=== PATIENT | female | born 1950 | race Caucasian/White ===

== ENCOUNTER 2022-01-15 12:09 | Emergency (ER) | payer MEDICARE, OTHER, SELFPAY ==
--- NOTE | 2022-01-15 12:13 | XR_ITS ---
WS: [id number] XR chest 1V portable [id number] REASON FOR EXAM: cp FINDINGS: Mild tortuosity and ectasia of the thoracic aorta and normal heart size. Calcified granulomatous disease bilaterally. No acute pulmonary parenchymal or pleural abnormality. Moderate degenerative spondylosis in the mid and lower thoracic spine. 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 XR/XR chest 1V portable [id number] IMPRESSION: No acute chest abnormality.
[2022-01-15 12:22] VITALS: BP 185/107; PULSE 80; RESP 16; TEMP 37.2; O2SAT 94
--- NOTE | 2022-01-15 12:25 | ECG_ITS ---
[facility] Test Date: 2022-01-15 Pat Name: Yesenia Arias Department: Room: Gender: Female Manager Medical: : 1950 Requested By: Sebastien Baca Order Number: [id number] Wilda MD: Aurelia Sheets M.D. Measurements Intervals [place] Rate: 72 P: 57 UT: 198 QRS: 81 QRSD: 98 T: 40 QT: 359 QTc: 394 Interpretive Statements SINUS RHYTHM POSSIBLE LEFT ATRIAL ENLARGEMENT [-0.1mV P-WAVE IN V1/V2] No previous ECG available for comparison Electronically Signed On 01-15-2022 14:51:44 DEHYDRATION UNIT OPERATOR by Aurelia Sheets M.D. [email or web address] CorporationVirgin Mobile Latin Americauniversity hospitals portage medical centerVariation [email or web address]/store/OM/[id number]
[2022-01-15 12:28] VITALS: PULSE 65; O2SAT 98
[2022-01-15 13:06] LABS: Basophils % 0.5 %; Eosinophils # 0.1 10^3/uL (0.0-0.8); Eosinophils % 2.5 %; Hematocrit 42.8 % (37.0-47.0); Hemoglobin 14.2 g/dL (11.5-15.3); Lymphocytes # 1.7 10^3/uL (0.8-4.8); Lymphocytes % 30.4 %; Mean Corpuscular HGB Conc 33.2 g/dL (30.0-36.0); Mean Corpuscular Hemoglobin 28.5 pg (28.0-34.0); Mean Corpuscular Volume 85.8 fl (81-99); Mean Platelet Volume 10.2 fL (7.4-10.4); Monocytes # 0.3 10^3/uL (0.2-0.9); Monocytes % 5.6 %; Neutrophils # 3.46 10^3/uL (1.8-7.7); Neutrophils % 60.6 %; Nucleated Red Blood Cells % 0 %; Platelet Count 186 10^3/cmm (130-400); Red Blood Count 4.99 10^6/uL (4.1-5.3); Red Cell Distribution Width 12.5 % (12.1-15.1); White Blood Count 5.7 10^3/uL (4.0-10.0)
[2022-01-15 13:19] LABS: Troponin(5th) Baseline 23 ng/L (0-10)
[2022-01-15 13:28] LABS: Alanine Aminotransferase 16 U/L (0-33); Albumin Level 4.5 g/dL (3.5-5.2); Alkaline Phosphatase 87 U/L (35-105); Anion Gap 13.2 (5-19); Aspartate Amino Transferase 18 U/L (0-32); Blood Urea Nitrogen 14 mg/dL (8-23); Calcium 10.3 mg/dL (8.5-10.5); Carbon Dioxide 29 mmol/L (22-29); Chloride 102 mmol/L (98-107); Globulin 3.5 g/dL (1.3-4.6); Glomerular Filtration Rate 98.8 mL/min (90-130); Glucose 77 mg/dL (65-115); Lipase 66 U/L (13-60); NT Pro B Type Natriuretic Pept 44 pg/mL (0-125); Osmolality Calculated 289 mOsm/kg (285-295); Potassium 4.2 mmol/L (3.5-5.1); Sodium 140 mmol/L (136-145); Total Bilirubin 0.3 mg/dL (0.15-1.2)
--- NOTE | 2022-01-15 14:13 | ECG_ITS ---
[facility] Test Date: 2022-01-15 Pat Name: Yesenia Arias Department: Room: Gender: Female Yam Curer: : 1950 Requested By: Sebastien Baca Order Number: [id number] Wilda MD: Aurelia Sheets M.D. Measurements Intervals [place] Rate: 72 P: 54 NM: 199 QRS: 71 QRSD: 90 T: 44 QT: 366 QTc: 403 Interpretive Statements SINUS RHYTHM WITH SINUS ARRHYTHMIA Compared to ECG 01/15/2022 12:25:16 No significant changes Electronically Signed On 01-16-2022 0:14:03 SUPERVISOR HYDROCHLORIC AREA by Aurelia Sheets M.D. [email or web address] state [email or web address] memorial [email or web address]/store/[id number]
--- NOTE | 2022-01-15 15:29 | W.ED.CHESTPA ---
HPI - Chest Pain General: Chief Complaint: Chest Pain Stated Complaint: chest pain Time Seen by Provider: 01/15/22 15:29 History of Present Illness: Ms. Arias is a 72-year-old lady without significant past medical history presenting to the emergency department due to palpitations and chest discomfort. She reports noticing symptoms started at rest approximately 1 week ago without known specific provoking event. Since that time she does admit intermittent episodes that do not correlate with exertion or other typical cardiac features. He does become less of a pinching sensation and more of a pressure. Not currently having symptoms. When present intensity is moderate. Course has mildly worsened. No other specific changes in health, exacerbating, or alleviating factors identified. Onset (ago): day(s) Timing of current episode: episodic Prior episodes: No Onset: during rest Pain location: left chest Severity: moderate Quality: sharp Relieving factors: nothing Exacerbating factors: nothing Associated symptoms: Reports palpitations Review of Systems General: Reports: 10 or more systems reviewed and unremarkable except in HPI and below Card: Reports: palpitations PFSH ED PFSH: Medical History (Updated 01/23/22 @ 00:01 by ) No significant past medical history Surgical History (Updated 01/15/22 @ 15:57 by Sebastien Baca MD) History of hysterectomy Physical Exam Const: COMMON NORMALS: alert GENERAL APPEARANCE: cooperative and well developed HENMT: COMMON NORMALS: normocephalic and atraumatic HEAD & SCALP: normocephalic and atraumatic THROAT: posterior oropharynx normal Eye: COMMON NORMALS: conjunctivae normal CONJUNCTIVA: Yes conjunctivae normal SCLERA: sclerae normal Neck/C-Spine: COMMON NORMALS: supple GENERAL: Yes trachea midline Resp: COMMON NORMALS: normal respiratory effort and clear to auscultation bilaterally EFFORT & INSPECTION: Yes able to speak in complete sentences AUSCULTATION: clear to auscultation bilaterally Cardio: COMMON NORMALS: regular rate and regular rhythm RATE: regular rate RHYTHM: regular rhythm GI: COMMON NORMALS: Soft to palpation PALPATION: Yes Soft to palpation and No Tenderness to palpation present (GI) Extremity: GENERAL: Yes normal exam except as noted and No edema Neuro: COMMON NORMALS: moves all extremities SENSORIUM/ORIENTATION: Yes alert and No Orientation impaired Psych: COMMON NORMALS: mental status grossly normal and Normal thought process present THOUGHT PROCESS: Normal thought process present Course Vital Signs: Vital signs: Vital Signs Temperature 98.9 F 01/15/22 12:22 Pulse Rate 61 01/15/22 16:25 Respiratory Rate 16 01/15/22 16:25 Blood Pressure 191/82 01/15/22 16:25 Pulse Oximetry 96 01/15/22 16:25 Oxygen Delivery Me thod 01/15/22 12:22 MDM - Chest Pain Medical Decision Making 72-year-old lady presenting with chest discomfort. Exam as above. EKG shows sinus rhythm with nonspecific ST segment abnormalities, no STEMI No significant hematologic or metabolic abnormalities to explain symptoms. The patient's 2-hour delta troponin is negative. Minimally elevated lipase though clinical symptoms are not consistent with pancreatitis. Chest x-ray with no lobar consolidation or pneumothorax. The most likely cause of patient's symptoms is unclear though she is not low risk by heart score. The results of ED evaluation were discussed with the patient including possible disposition options. I discussed risk stratification by heart score and estimated risk of major adverse cardiac events. The patient does not wish to undergo nuclear medicine cardiac stress testing due to prior experience with this. The patient wishes to proceed with outpatient management. I discussed prescriptions and/or symptomatic cares (if applicable) including appropriate and responsible use, followup plan, and return precautions. The patient verbalized understanding and felt safe for discharge. Medical Records I reviewed the patient's medical records. Lab Data I reviewed the patient's lab results. 01/15/22 12:50 01/15/22 12:50 Radiology Impressions Chest X-Ray 01/15/22 12:13 IMPRESSION: No acute chest abnormality. Laboratory Results WBC 5.7 10^3/uL (4.0-10.0) 01/15/22 12:50 RBC 4.99 10^6/uL (4.1-5.3) 01/15/22 12:50 Hgb 14.2 g/dL (11.5-15.3) 01/15/22 12:50 Hct 42.8 % (37.0-47.0) 01/15/22 12:50 MCV 85.8 fl (81-99) 01/15/22 12:50 MCH 28.5 pg (28.0-34.0) 01/15/22 12:50 MCHC 33.2 g/dL (30.0-36.0) 01/15/22 12:50 RDW 12.5 % (12.1-15.1) 01/15/22 12:50 Plt Count 186 10^3/cmm (130-400) 01/15/22 12:50 MPV 10.2 fL (7.4-10.4) 01/15/22 12:50 Neut % (Auto) 60.6 % 01/15/22 12:50 Lymph % (Auto) 30.4 % 01/15/22 12:50 [place] % (Auto) 5.6 % 01/15/22 12:50 Eos % (Auto) 2.5 % 01/15/22 12:50 Baso % (Auto) 0.5 % 01/15/22 12:50 Neut # (Auto) 3.46 10^3/uL (1.8-7.7) 01/15/22 12:50 Lymph # (Auto) 1.7 10^3/uL (0.8-4.8) 01/15/22 12:50 [place] # (Auto) 0.3 10^3/uL (0.2-0.9) 01/15/22 12:50 Eos # (Auto) 0.1 10^3/uL (0.0-0.8) 01/15/22 12:50 Baso # (Auto) 0.0 10^3/uL (0.0-0.1) 01/15/22 12:50 Nucleated RBC % (auto) 0 % 01/15/22 12:50 Nucleated RBCs # 0.0 /100WBC 01/15/22 12:50 Sodium 140 mmol/L (136-145) 01/15/22 12:50 Potassium 4.2 mmol/L (3.5-5.1) 01/15/22 12:50 Chloride 102 mmol/L (98-107) 01/15/22 12:50 Carbon Dioxide 29 mmol/L (22-29) 01/15/22 12:50 Anion Gap 13.2 (5-19) 01/15/22 12:50 BUN 14 mg/dL (8-23) 01/15/22 12:50 Creatinine 0.6 mg/dL (0.5-0.9) 01/15/22 12:50 GFR Calculation 98.8 mL/min (90-130) 01/15/22 12:50 Glucose 77 mg/dL (65-115) 01/15/22 12:50 Calculated Osmolality 289 mOsm/kg (285-295) 01/15/22 12:50 Calcium 10.3 mg/dL (8.5-10.5) 01/15/22 12:50 Total Bilirubin 0.3 mg/dL (0.15-1.2) 01/15/22 12:50 AST 18 U/L (0-32) 01/15/22 12:50 ALT 16 U/L (0-33) 01/15/22 12:50 Alkaline Phosphatase 87 U/L (35-105) 01/15/22 12:50 Troponin T Baseline 23 ng/L (0-10) H 01/15/22 12:50 Troponin T 120 Minute 21.15 ng/L (0-10) H 01/15/22 14:50 Delta Troponin T -1.85 ABS# (0-10) L 01/15/22 14:50 NT-Pro-B Natriuret Pep 44 pg/mL (0-125) 01/15/22 12:50 Total Protein 8.0 g/dL (6.6-8.7) 01/15/22 12:50 Albumin 4.5 g/dL (3.5-5.2) 01/15/22 12:50 Globulin 3.5 g/dL (1.3-4.6) 01/15/22 12:50 Lipase 66 U/L (13-60) H 01/15/22 12:50 Discharge Plan Discharge Patient Disposition: Home Clinical Impression: Atypical chest pain, Heart palpitations Condition: Stable Discharge Orders: Discharge ED (Routine); Ordered 01/15/22 Ordered By: Sebastien Baca Other Ambulatory Orders: ECG holter monitor 7 Days (Routine) Timeframe: 3 Days Facility: [facility] - Location: Radiology Ordered By: Sebastien Baca Referrals: Christal Dee MANAGER HOUSEKEEPING-C [Primary Care Provider] - Discharge Diet: Usual diet Discharge Activity: Increase activity as tolerated Patient Instructions: Chest Pain (ED), Heart Palpitations (ED) Activity Restrictions/Additional Instructions: Thank you for visiting the emergency department. You were seen and evaluated for chest discomfort and palpitations. The exact cause of your symptoms is unclear though does require further testing which you are choosing to have in the outpatient setting. I will message case management for follow-up with cardiology. You should expect to hear from them in the next few days for scheduling. Please also follow-up with your primary care provider. Please return to the emergency department for worsening symptoms or anything else that you are concerned about a feel needs emergency department evaluation. Coding Level of Care Code ED Manager Trainee for Brittney F[employer] Exam Comprehensive
[2022-01-15 15:34] LABS: Troponin 5 2HR 21.15 ng/L (0-10)
[2022-01-15 15:39] LABS: Troponin 5 2HR Delta -1.85 ABS# (0-10)
[2022-01-15 16:25] VITALS: BP 191/82; PULSE 61; RESP 16; O2SAT 96
--- NOTE | 2022-01-16 12:49 | DCPLANNER ---
Addendum entered by Ashleigh Watson 03/09/22 14:42: Patient had a follow up appointment scheduled with heart care - patient did attend appointment. Addendum entered by Ashleigh Watson 02/01/22 15:26: Patient has a follow up appointment scheduled for Sunday, March 06, 2022 at 10:[address] Connor at [facility]. Clinic will call patient with appointment information. Addendum entered by Ashleigh Watson 01/17/22 07:08: This referral was sent to [facility], not ortho Original Note: first assistant manager had message to schedule a follow up appointment for patient with ortho. first assistant manager sent patients information to the front office staff at [facility]. Patients information will be printed and reviewed. Clinic will call patient with appointment information.
--- NOTE | 2022-01-17 07:09 | DCPLANNER ---
Addendum entered by Ashleigh Watson 05/09/22 13:12: patient did not want the tests scheduled Original Note: channel marketing program manager also had message to schedule an outpatient stress test and echocardiogram for patient. channel marketing program manager faxed signed order to centralized scheduling, who will call patient with appointment information. channel marketing program manager also sent notification to patients primary care physician that this test was ordered by an ER physician.
== END 2022-01-15 16:27 | disposition home or self-care (01) ==
PROVIDERS: Emergency Provider Emergency Medicine; PCP Nurse Practitioner Family
DX: R07.89 Other chest pain (principal); R00.2 Palpitations
CPT/HCPCS: 36415; 71045; 80053; 83690; 83880; 84484; 85025; 93005; 99285

== ENCOUNTER → 2022-03-06 10:14 | Outpatient (BNVA) | payer MEDICARE, OTHER, SELFPAY | PROVIDERS: PCP Nurse Practitioner Family; Visit Provider Internal Medicine Cardiovascular Disease | DX: R07.9 Chest pain, unspecified (principal); R00.2 Palpitations; I10 Essential (primary) hypertension | CPT/HCPCS: 99203; Q3014 ==

== ENCOUNTER → 2022-06-05 13:08 | Outpatient (BNVA) | payer MEDICARE, OTHER, SELFPAY | PROVIDERS: PCP Nurse Practitioner Family; Visit Provider Nurse Practitioner Family | DX: I10 Essential (primary) hypertension (principal); R00.2 Palpitations | CPT/HCPCS: 99214 ==

== ENCOUNTER → 2022-10-02 14:21 | Outpatient (BNVA) | payer MEDICARE, OTHER, SELFPAY | PROVIDERS: PCP Nurse Practitioner Family; Visit Provider Internal Medicine Cardiovascular Disease | DX: R07.9 Chest pain, unspecified (principal); R00.2 Palpitations; I10 Essential (primary) hypertension | CPT/HCPCS: 99213 ==

== ENCOUNTER 2023-01-17 12:10 | Outpatient (CLI) | payer MEDICARE, OTHER, SELFPAY ==
--- NOTE | 2023-01-17 12:00 | MM_ITS ---
WS: [id number] BILATERAL 3D TOMOSYNTHESIS DIGITAL SCREENING MAMMOGRAPHY WITH CAD CLINICAL INFORMATION: SCREENING HISTORY: Screening mammogram. No current complaints. COMPARISON: None. TECHNIQUE: Bilateral CC and MLO views. FINDINGS: The breasts are composed of heterogeneous fibroglandular density tissue, which can limit the detectio n of small underlying mass lesions. No suspicious mass, asymmetry, calcifications, or architectural d istortion. No evidence of malignancy. Vascular calcification. Incidental punctate calcifications. IMPRESSION: MM/[place] [id number] BI-RADS: 2-Benign FOLLOW UP: 1 Year Follow-up Recommend return to annual screening mammography.
== END 2023-01-17 12:11 | disposition home or self-care (01) ==
LOC: MOBLMAM 12:14
PROVIDERS: PCP Nurse Practitioner Family; Visit Provider Nurse Practitioner Family
DX: Z12.31 Encounter for screening mammogram for malignant neoplasm of breast (principal)
CPT/HCPCS: 77063; 77067

== ENCOUNTER → 2023-12-19 14:55 | Outpatient (BNVA) | payer MEDICARE, SELFPAY | PROVIDERS: PCP Nurse Practitioner Family; Visit Provider Internal Medicine Cardiovascular Disease | DX: R06.09 Other forms of dyspnea (principal); R00.2 Palpitations; I10 Essential (primary) hypertension; E78.49 Other hyperlipidemia | CPT/HCPCS: 99213 ==

== ENCOUNTER 2024-01-21 15:32 | Outpatient (CLI) | payer MEDICARE, SELFPAY ==
--- NOTE | 2024-01-21 15:45 | USCV_ITS ---
Yesenia Arias Age: 74 Gender: F : 1950 Exam Date: 01/21/2024 15:46 Ordering Phys: Gal Jacques MD ([email or web address]) Technologist: CT Exam Location: [facility] [place] Indication: sob BP: / HR: Rhythm: Sinus Technical Quality: Adequate MEASUREMENTS (Male / Female) Normal Values FINDINGS Left Ventricle Normal left ventricular size, systolic function and wall thickness, with no regional wall motion abnormalities. Left ventricular ejection fraction is estimated at 60 %. Grade I/IV diastolic dysfunction (abnormal relaxation filling pattern), normal to mildly elevated filling pressures. Right Ventricle The right ventricle is normal in size and function. Right Atrium The right atrium is normal in size. Left Atrium The left atrium is normal in size. Mitral Valve Trace mitral valve regurgitation. Aortic Valve Structurally normal aortic valve without significant sclerosis or stenosis. There is no aortic regurgitation. Tricuspid Valve Structurally normal tricuspid valve without significant stenosis or regurgitation. Pulmonary artery systolic pressure is normal. Pulmonic Valve Structurally normal pulmonic valve without significant stenosis. There is no pulmonic regurgitation. Pericardium Normal pericardium without effusion. Aorta Normal ascending aorta dimension. IVC The inferior vena cava appears normal. CONCLUSIONS Normal left ventricular size, systolic function and wall thickness, with no regional wall motion abnormalities. Left ventricular ejection fraction is estimated at 60 %. Grade I/IV diastolic dysfunction (abnormal relaxation filling pattern), normal to mildly elevated filling pressures. There is no pericardial effusion. No significant valve abnormalities. Right atrial pressure is around 5 mm of mercury. Gal Jacques MD (Electronically Signed) Final Date: 27 January 2024 10:32 S
== END 2024-01-21 15:33 | disposition home or self-care (01) ==
LOC: RAD 15:37
PROVIDERS: PCP Nurse Practitioner Family; Visit Provider Internal Medicine Cardiovascular Disease
DX: I50.30 Unspecified diastolic (congestive) heart failure (principal); R06.02 Shortness of breath; R00.2 Palpitations
CPT/HCPCS: 93306

== ENCOUNTER → 2024-12-18 11:12 | Outpatient (BNVA) | payer MEDICARE, SELFPAY | PROVIDERS: PCP Nurse Practitioner Family; Visit Provider Internal Medicine Cardiovascular Disease | DX: R00.2 Palpitations (principal); I10 Essential (primary) hypertension; M79.18 Myalgia, other site; R06.09 Other forms of dyspnea; R09.89 Other specified symptoms and signs involving the circulatory and respiratory systems | CPT/HCPCS: 99214 ==